=== PATIENT | female | born 1965 | race Caucasian/White ===

== ENCOUNTER 2017-02-09 15:28 | Emergency (ER) | payer OTHER ==
[2017-02-09 15:44] VITALS: BP 139/88
--- NOTE | 2017-02-09 17:07 | ED ---
Abdominal Pain/Female - HPI Summary HPI Summary: Patient presents to the with LLQ pain and urinary symptoms x 1 week. She notes to a history of IBS, but states this feels different. Urinary symptoms include cloudy urine and left sided back pain. Endorses hx of UTI's, but denies kidney infections. She is otherwise healthy, takes no medications. Hx of fibroids for which she has not been seen for awhile. She states in the past with her fibroid history, she has lower quadrant pain with back pain. Denies N/ V/C/D. Denies urgency, frequency, burning. Denies fevers, sweats or chills. Denies vaginal discharge or hx of STD's. - History of Current Complaint Chief Complaint: UCAbdominalPain Stated Complaint: ABDOMINAL PAIN Time Seen by Provider: 02/09/17 16:48 Hx Obtained From: Patient Hx Last Menstrual Period: 07/17/15 ?: No Onset/Duration: Sudden Onset Timing: Minutes Severity Initially: Mild Severity Currently: Mild Pain Intensity: 4 Pain Scale Used: 0-10 Numeric Location: Discrete At: LLQ Radiates: No Radiates to: Flank Character: Dull Aggravating Factor(s): Nothing Alleviating Factor(s): Nothing Associated Signs and Symptoms: Positive: Negative - Risk Factors Ectopic Risk Factor: Negative Ovarian Torsion Risk Factor: Reproductive Age, Ovarian Cysts/Tumors Allergies/Adverse Reactions: Allergies Allergy/AdvReac Type Severity Reaction Status Date / Time Amoxicillin [From Augmentin] Allergy Unknown Verified 02/09/17 15:44 Reaction Details Clarithromycin [From Biaxin] Allergy Unknown Verified 02/09/17 15:44 Reaction Details Clavulanic Acid Allergy Unknown Verified 02/09/17 15:44 [From Augmentin] Reaction Details Ibuprofen Allergy Unknown Verified 02/09/17 15:44 Reaction Details Penicillins [PCN] Allergy Unknown Verified 02/09/17 15:44 Reaction Details Home Medications: Home Medications Multiple Vitamins W/ Minerals [Multivitamin Adults] 1 tab PO DAILY 02/09/17 [ History Confirmed 02/09/17] [place]-3 Fatty Acids [Fish Oil] PO DAILY 02/09/17 [History] Turmeric (Curcuma Longa) (Bulk [Turmeric] 1 pow XX DAILY 02/09/17 [History Confirmed 02/09/17] PMH/Surg Hx/FS Hx/Imm Hx Previously Healthy: Yes Endocrine/Hematology History: Denies: Hx Diabetes, Hx Thyroid Disease Cardiovascular History: Denies: Hx Congestive Heart Failure, Hx Deep Vein Thrombosis, Hx Hypertension , Hx Myocardial Infarction, Hx Pacemaker/ICD Respiratory History: Denies: Hx Asthma, Hx Chronic Obstructive Pulmonary Disease (COPD), Hx Lung Cancer, Hx Pneumonia, Hx Pulmonary Embolism GI History: Denies: Hx Gall Bladder Disease, Hx Gastrointestinal Bleed, Hx Ulcer, Hx Urosepsis History: Denies: Hx Kidney Stones, Hx Renal Disease Sensory History: Denies: Hx Hearing Aid Psychiatric History: Reports: Hx Anxiety Denies: Hx Depression, Hx Panic Disorder, Hx Schizophrenia, Hx Bipolar Disorder - Cancer History Hx Chemotherapy: No Hx Radiation Therapy: No - Surgical History Surgery Procedure, Year, and Place: WISDOM TEETH - Immunization History Hx Pertussis Vaccination: No Immunizations Up to Date: Unable to Obtain/Confirm Infectious Disease History: No Infectious Disease History: Denies: Hx Clostridium Difficile, Traveled Outside the [place] in Last 30 Days - Family History Known Family History: Positive: None - Social History Occupation: Employed Part-time Lives: With Family Alcohol Use: Occasionally Hx Substance Use: No Substance Use Type: Reports: None Hx Tobacco Use: No Smoking Status (MU): Never Smoked Tobacco Have You Smoked in the Last Year: No Review of Systems Constitutional: Negative ENT: Negative Cardiovascular: Negative Respiratory: Negative Positive: Abdominal Pain - LLQ pain Positive: flank pain - left sided flank pain Musculoskeletal: Negative Skin: Negative Neurological: Negative All Other Systems Reviewed And Are Negative: Yes Physical Exam Triage Information Reviewed: Yes Vital Signs On Initial Exam: Initial Vitals Temp Pulse Resp BP Pulse Ox 98.3 F 83 16 139/88 100 02/09/17 15:41 02/09/17 15:41 02/09/17 15:41 02/09/17 15:41 02/09/17 15:41 Vital Signs Reviewed: Yes Appearance: Positive: Well-Appearing, Well-Nourished Skin: Positive: Warm, Skin Color Reflects Adequate Perfusion Head/Face: Positive: Normal Head/Face Inspection Eyes: Positive: EOMI, LOBO, Conjunctiva Clear Neck: Positive: Nontender, No Lymphadenopathy Respiratory/Lung Sounds: Positive: Clear to Auscultation, Breath Sounds Present Cardiovascular: Positive: RRR, Pulses are Symmetrical in both Upper and Lower Extremities Bowel Sounds: Positive: Present Musculoskeletal: Positive: Normal, Strength/ROM Intact Neurological: Positive: Speech Normal Psychiatric: Positive: Normal AVPU Assessment: Alert Diagnostics - Vital Signs Vital Signs Temp Pulse Resp BP Pulse Ox 02/09/17 15:41 98.3 F 83 16 139/88 100 - Laboratory Lab Results: Lab Results 02/09/17 Range/Units 16:34 POC Urine Color Yellow POC Urine Clarity Clear POC Urine pH 5.5 (5-9) POC Ur Specif Clark 1.020 (1.010-1.030) POC Urine Protein Negative (Negative) POC Ur Glucose (UA) Negative (Negative) POC Urine Ketones Negative (Negative) POC Urine Blood Negative (Negative) POC Urine Nitrite Negative (Negative) POC Urine Bilirubin Negative (Negative) POC Urine Urobilinogen 0.2 (Negative) POC U Leukocyte Esteras Trace H (Negative) Lab Statement: Any lab studies that have been ordered have been reviewed, and results considered in the medical decision making process. Abdominal Pain Fem Course/Dx - Course Course Of Treatment: Patient evaluated for LLQ pain with cloudy urine. UA performed and shows 1+ leuks. Hx of fibroids and states this feels similar. Pain has continued for 1 week. Denies other symptoms. She does not currently have an OBGYN. She is encoruaged to follow up [facility] this week to evalutae for fibroids. Macrobid given for UTI. She is OK with discharge. - Diagnoses Differential Diagnosis: Positive: Diverticulitis, Ovarian Cyst, Renal Colic, Other - fibroids Provider Diagnoses: UTI (urinary tract infection) Discharge - Discharge Plan Condition: Stable Disposition: HOME Prescriptions: Nitrofurantoin Monohyd Macro [Macrobid] 100 mg PO BID #10 cap Patient Education Materials: Uterine Fibroids (ED), Urinary Tract Infection in Women (ED) Referrals: Charmaine Gaffney MD [Medical Doctor] - Donnell Matt MD [Primary Care Provider] - Additional Instructions: Follow up with OB for an US Take macrobid twice daily for 5 days If symptoms worsen, please go to the ED for further evaluation
--- NOTE | 2017-02-11 16:44 | ED ---
Progress - Progress Note Progress Note: CALL PATIENT. UCX(-). STOP ABX. Course/Dx - Course Course Of Treatment: Patient evaluated for LLQ pain with cloudy urine. UA performed and shows 1+ leuks. Hx of fibroids and states this feels similar. Pain has continued for 1 week. Denies other symptoms. She does not currently have an OBGYN. She is encoruaged to [facility] to evalutae for fibroids. Macrobid given for UTI. She is OK with discharge. - Diagnoses Provider Diagnoses: UTI (urinary tract infection)
== END 2017-02-09 17:07 | disposition home or self-care (01) ==
LOC: UCEAST 15:28
DX: N39.0 Urinary tract infection, site not specified (principal); Z87.440 Personal history of urinary (tract) infections; F41.9 Anxiety disorder, unspecified; Z88.6 Allergy status to analgesic agent; Z88.1 Allergy status to other antibiotic agents; Z88.0 Allergy status to penicillin
CPT/HCPCS: 81003; 87086; 99212; G0463

== ENCOUNTER 2017-04-27 09:04 | Day surgery (SDC) | payer OTHER ==
--- NOTE | 2017-04-21 13:01 | HP ---
HISTORY AND PHYSICAL: DATE OF ADMISSION: 04/27/17 She is coming in for right knee arthroscopic surgery on 04/27/17. CHIEF COMPLAINT: Right medial knee pain. HISTORY OF PRESENT ILLNESS: She injured the knee earlier this year and she has been having problems with it since. An MRI scan has shown a medial meniscal tear and because she is not improving and con tinuing to have pain and mechanical symptoms, an arthroscopic surgery of the right knee has been heidi mmended. DAILY MEDICATIONS: 1. Fluoxetine 30 mg each day. 2. Tylenol as needed. ALLERGIES: She is allergic to AUGMENTIN. I have determined today that we will plan to use Ancef for her surgical prophylaxis. REVIEW OF SYSTEMS: No history of heart attack. No history of chest pain. She is able to walk up tw o flights of stairs without chest pain, without shortness of breath. No bleeding tendencies. Her ki dneys are okay. No history of DVT or pulmonary embolism and no cancers. PHYSICAL EXAMINATION GENERAL: She is well nourished, well developed, not acutely distressed with a slight limp on the rig ht. A right knee squat produces medial knee discomfort. VITAL SIGNS: Temp 97.5, blood pressure 118/80, 67 inches in height, 170 pounds. HEENT: The head is NC/AT. LUNGS: Clear bilaterally. HEART: The heart is regular. S1, S2 normal. No murmurs or gallops. ABDOMEN: Soft, nontender. There is no organomegaly. EXTREMITIES: The right knee is tender medially. Nontender anterolaterally, posteriorly. MCL and LC L are stable to Anival and posterior drawer are normal. The thigh and calves are soft and neurovascu larly, foot is intact. NEUROLOGIC: The cranial nerves are grossly intact. IMPRESSION: Right knee medial meniscal tear. PLAN: Right knee arthroscopic surgery. Risks and complications were reviewed with her and the gener al course of the hospital day were reviewed and her questions were answered. [id number]/[facility] #: [id number]
[~2017-04-27 09:04] MED LIST: Buffered Lidocaine 0.9% SYRIN* 5 ML/SYR SYRINGE INTRADERM ONE; Sodium Citrate/Citric Acid* 15 ML UDC PO ONE
[2017-04-27] MEDS ORDERED: Buffered Lidocaine 0.9% SYRIN* 5 ML/SYR SYRINGE ONE (09:12)
[2017-04-27] MEDS ORDERED: ceFAZolin 2 GM PREMIX (*) 2 GM/50 ML BAG IVPB ONE (09:12)
[2017-04-27] MEDS ORDERED: Sodium Citrate/Citric Acid* 15 ML UDC ONE (09:12)
[2017-04-27] MEDS ORDERED: Midazolam* 1 MG/ML 2 ML VIAL (2 MG) ONE ×2 (10:55→11:13)
[2017-04-27] MEDS ORDERED: Chloroprocaine 2%* 20 ML VIAL ONE (10:56)
[2017-04-27] MEDS ORDERED: Ondansetron INJ* 2 MG/ML VIAL IV PRN (11:06)
[2017-04-27] MEDS ORDERED: fentaNYL* 50 MCG/ML 2 ML VIAL (100 MCG VIAL) IV PRN (11:06)
[2017-04-27] MEDS ORDERED: Bupivacaine 0.5% SDV PF* 30 ML VIAL ONE (11:41)
[2017-04-27] MEDS ORDERED: fentaNYL* 50 MCG/ML 2 ML VIAL (100 MCG VIAL) ONE (13:26)
[2017-04-27] MEDS ORDERED: HYDROcodone/ACETAMIN 5-325 MG* 1 TAB ONE (13:26)
[2017-04-27 13:41] VITALS: BP 134/81
--- NOTE | 2017-04-28 01:54 | OP ---
DATE OF OPERATION: 04/27/17 - [facility] DATE OF : 61 SURGICAL CARE: Right knee SURGEON: Dr. Harper. SKEIN WINDER: MIKE Álvarez. ANESTHESIOLOGIST: Dr. Candido Prado. ANESTHESIA: Spinal with IV sedation. PRE-OP DIAGNOSIS: Right knee medial meniscal tear. 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 OPERATIVE PROCEDURE: Right knee arthroscopic chondroplasty of the patella and partial medial meniscectomy. COMPLICATIONS: There were no complications. DRAINS: There were no drains. TOURNIQUET: Tourniquet control was utilized on the right leg. CONDITION: Stable to the recovery room. OPERATIVE INDICATIONS: Right knee medial meniscal tear that has been persistently bothering her. She has not been improving and the arthroscopic surgery was recommended. DESCRIPTION OF PROCEDURE: The patient was brought to the operating room and placed on the operating room table in the supine position. Following the administration of the anesthetic, her right proximal thigh was wrapped with a tourniquet and the right leg was given a preliminary chlorhexidine prep and then prepped from the tourniquet to the foot and then draped free and carefully sealed off in the usual fashion for arthroscopic surgery of the knee. The leg, ankle and foot portion of her right leg were sealed off with an impermeable drape. We did our universal protocol time-out confirming Chayo Perea and the plan for right knee arthroscopic surgery. We all agreed and we proceeded. The leg was exsanguinated. The tourniquet elevated to 275. The knee was set up for the arthroscopy with the arthroscope lateral to the patellar tendon, probe and operating instruments medial to the patellar tendon and the portals were interchanged to complete the surgical care on the medial meniscus. The survey of the joint show that there is a little debris within the initial washings out of the joint. The patella had diffuse crabmeat fibrillations and once these were evident, I shaved these smooth. The trochlear site was in good condition. The medial and lateral gutters were clear. Her lateral joint compartment overall very satisfactory with a little bit of yellowing and fraying of the cartilages. The ACL and PCL appeared to be satisfactory. The medial femoral condyle had some cartilage loss and fraying and some of this was shaved a little bit. The medial meniscus was torn in a complex fashion, mid and posteriorly and this was removed with a shaver and the baskets with the knee on a valgus stress between 0 and 30 degrees of flexion with external rotation. Care was taken not to injure the adjacent condyle and plateau during the medial meniscectomy. Then final photographs were obtained. Once the surgical care was complete, final photographs were obtained, the tourniquet was deflated and the knee was irrigated with another 4 L of saline irrigation solution, then emptied, then instilled with Marcaine 0.5% without epinephrine 28 to 30 mL. The skin portals were closed with interrupted 3-0 Surgipro and dressing was applied after washing and drying with Betadine-soaked release, sterile gauze, sterile Webril, cryotherapy cuff, ABD pads and then a 6 inch Elliot bandage loosely applied. The patient was returned to the recovery room in stable and satisfactory condition, having tolerated the procedure very well. [id number]/[facility] #: [id number] DARA
== END 2017-04-27 13:51 | disposition home or self-care (01) ==
LOC: OR 09:04
PROVIDERS: ATTEND Orthopaedic Surgery
DX: S83.231A Complex tear of medial meniscus, current injury, right knee, initial encounter (principal); M22.41 Chondromalacia patellae, right knee; Z68.25 Body mass index [BMI] 25.0-25.9, adult; M19.90 Unspecified osteoarthritis, unspecified site; X58.XXXA Exposure to other specified factors, initial encounter; Y92.9 Unspecified place or not applicable
CPT/HCPCS: 81025; 88304; A9270-GY; J0690; J2250; J2400; J3010

== ENCOUNTER 2019-05-05 13:52 | Emergency (ER) | payer OTHER ==
--- NOTE | 2019-05-05 15:09 | UC ---
Lower Extremity/Ankle HPI - HPI Summary HPI Summary: Patient is a 54-year-old female who injured her left foot status post an inversion injury yesterday. It hurts to bear weight. She has had no prior injuries to that foot. She denies any other injury from this incident. - History of Current Complaint Chief Complaint: UCLowerExtremity Stated Complaint: FOOT INJURY Time Seen by Provider: 05/05/19 14:47 Hx Obtained From: Patient Hx Last Menstrual Period: 07/17/15 Onset/Duration: Sudden Onset Severity Initially: Moderate Severity Currently: Moderate Pain Intensity: 7 - with wt bearing Pain Scale Used: 0-10 Numeric Aggravating Factor(s): Standing, Ambulation Alleviating Factor(s): Rest, Elevation Able to Bear Weight: Yes Feet (Multiple View): 1 - tender/swollen - Allergies/Home Medications Allergies/Adverse Reactions: Allergies Allergy/AdvReac Type Severity Reaction Status Date / Time amoxicillin [From Augmentin] Allergy Hives Verified 05/05/19 14:09 clavulanic acid Allergy Hives Verified 05/05/19 14:09 [From Augmentin] ibuprofen Allergy Hives Verified 05/05/19 14:09 Penicillins Allergy Hives Verified 05/05/19 14:09 PMH/Surg Hx/FS Hx/Imm Hx Previously Healthy: Yes Other History Of: Negative For: HIV, Hepatitis B, Hepatitis C - Surgical History Surgical History: Yes Surgery Procedure, Year, and Place: WISDOM TEETH 1985. RIGHT MENISCUS - Family History Known Family History: Positive: None, Hypertension Negative: Diabetes - Social History Alcohol Use: Occasionally Alcohol Amount: 2 per week Substance Use Type: None Smoking Status (MU): Never Smoked Tobacco Have You Smoked in the Last Year: No Review of Systems All Other Systems Reviewed And Are Negative: Yes Constitutional: Positive: Negative Skin: Positive: Negative Eyes: Positive: Negative ENT: Positive: Negative Respiratory: Positive: Negative Cardiovascular: Positive: Negative Gastrointestinal: Positive: Negative Genitourinary: Positive: Negative Motor: Positive: Negative Neurovascular: Positive: Negative Musculoskeletal: Positive: Other: - left foot pain Neurological: Positive: Negative Psychological: Positive: Negative Physical Exam Triage Information Reviewed: Yes Appearance: Well-Appearing, No Pain Distress, Well-Nourished Vital Signs: Initial Vital Signs Temp 98.3 F 05/05/19 14:04 Pulse 68 05/05/19 14:04 Resp 16 05/05/19 14:04 BP 118/76 05/05/19 14:04 Pulse Ox 100 05/05/19 14:04 Vital Signs Reviewed: Yes Eyes: Positive: Conjunctiva Clear ENT: Positive: Hearing grossly normal, Pharynx normal, Uvula midline. Negative : Nasal congestion, Nasal drainage, Tonsillar swelling, Tonsillar exudate, Trismus, Muffled voice, Hoarse voice Dental Exam: Normal Neck: Positive: Supple, Nontender, No Lymphadenopathy Respiratory: Positive: Lungs clear, Normal breath sounds, No respiratory distress, No accessory muscle use Cardiovascular: Positive: RRR, No Murmur Musculoskeletal: Positive: ROM Intact, Edema @ - see image Neurological: Positive: Alert Psychological Exam: Normal Skin Exam: Normal Diagnostics - Radiology No standard instances Radiology Interpretation Completed By: Radiologist Summary of Radiographic Findings: NONDISPLACED FRACTURE OF THE BASE OF THE FIFTH METATARSAL. Lower Extremity Course/Dx - Differential Dx/Diagnosis Provider Diagnosis: Nondisplaced fracture of fifth left metatarsal bone Discharge ED - Sign-Out/Discharge Documenting (check all that apply): Patient Departure All imaging exams completed and their final reports reviewed: Yes - Discharge Plan Condition: Stable Disposition: HOME Patient Education Materials: Foot Fracture in Adults (ED), Walking Boot (ED), Crutch Instructions (ED) Referrals: Jaron Nixon MD [Medical Doctor] - As Soon As Possible Additional Instructions: purvi Cam boot crutches you can wt bear as tolerated ice tylenol - Billing Disposition and Condition Condition: STABLE Disposition: Home
[2019-05-05 15:27] VITALS: BP 118/76
== END 2019-05-05 15:25 | disposition home or self-care (01) ==
LOC: UCEAST 13:52
DX: S92.355A Nondisplaced fracture of fifth metatarsal bone, left foot, initial encounter for closed fracture (principal); M25.475 Effusion, left foot; Z88.0 Allergy status to penicillin; Z88.8 Allergy status to other drugs, medicaments and biological substances; Z88.1 Allergy status to other antibiotic agents; X50.0XXA Overexertion from strenuous movement or load, initial encounter; Y92.9 Unspecified place or not applicable
CPT/HCPCS: 99213; G0463